=== PATIENT | female | born 1940 | race Caucasian/White ===

== ENCOUNTER 2016-10-30 19:24 | Emergency (ER) | payer MEDICARE, OTHER ==
--- NOTE | ~2016-10-30 | CR72 ---
[facility] A Service of [facility] & [facility] RADIOLOGY TEXT RESULTS PATIENT: LEXI BASS LOCATION: [facility] : 44 UNIT #: [id number] AGE: [address]: Shine Adams MD SEX: F ORDER DR: [id number] [facility] [address] [place], [place] [address] [id number] MR#: [id number] Acc #: [id number] NAME: LEXI BASS. : 1940 SEX: F STUDY DATE/TIME: 10/30/2016 19:41 UNIT: [facility] ROOM: STUDY DESCRIPTION: CR Chest Single View Portable Attending Physician: Ruben Adams M.D. Ordering Physician: Ed Doctor [id number] [facility] Primary Care Physician: Samuel Kincaid MEDICAL IMAGING REPORT This report is preliminary unless electronic signature is present EXAM Portable chest HISTORY Cough, hemoptysis, shortness of air with activity since 10/30/2016. COMPARISON STUDIES 06/30/15. FINDINGS AP portable view of the chest demonstrates patchy hyperlucency with coarse parenchymal lung markings suggesting underlying emphysema and fibrosis. This could represent a component of diffuse lung disease and possible idiopathic pulmonary fibrosis or other chronic lung disease. No acute airspace disease or consolidation. No effusions. Mild cardiomegaly. Patient is post median sternotomy and apparent CABG. Mild aortic atherosclerotic changes. No pneumothorax. Dictated by... Adenike Rice M.D. THIS IS AN ELECTRONICALLY VERIFIED REPORT Adenike Rice M.D. at 10/31/2016 10:10 AM Tiffanie TD: 10/31/2016 00:50 JOB #: [id number] MEDICAL IMAGING REPORT Page 1 of 1 COPY
[~2016-10-30 19:24] MED LIST: ABILIFY20 MG PO; APRESOLINE10 M1 DOB; ARICEPT5 M1 PO; ASPIRIN81 M2 PO; CELEXA20 MG PO; HYDRALAZINE HCL25 MG PO; ISORDIL PO; K-DUR20 ME1 DOB; LANTUS100 UNITS/ SUBQ; METOPROLOL TAR25 MG PO; MULTI VITAMIN1 EACH PO; SIMVASTATIN20 MG PO; TRICOR PO; VITAMIN C500 M1 PO
[2016-10-30 20:30] LABS: BASOPHIL% 0.4 % (0-2.5); EOSINOPHIL# 0.1 X10e3 (0-0.7); EOSINOPHIL% 1.4 % (0.0-7.0); LYMPHOCYTE# 2.8 X10e3 (1.0-3.5); LYMPHOCYTE% 29.4 % (17.0-45.0); MEAN CELL VOLUME 87.8 FL (83-96); MEAN CORPUSCULAR HEMOGLOBIN 28.4 PG (28-34); MEAN CORPUSCULAR HGB CONC 32.3 g/dL (30-36); MEAN PLATELET VOLUME 8.9 FL (6.5-11.5); MONOCYTE# 0.8 X10e3 (0-1.0); MONOCYTE% 8.2 % (3.0-12.0); NEUTROPHIL# 5.7 X10e3 (1.5-7.1); NEUTROPHIL% 60.6 % (40-75); PLATELET COUNT 234 X10e3 (140-420); RED BLOOD COUNT 3.87 X10e (3.90-5.30); RED CELL DISTRIBUTION WIDTH 14.1 % (11.0-15.5); WHITE BLOOD COUNT 9.5 X10e3 (4.0-10.5)
[2016-10-30 20:37] LABS: DIFF IND NO
[2016-10-30 20:53] LABS: INR 1.1; PARTIAL THROMBOPLASTIN TIME 25.8 SECONDS (23.5-31.3); PROTHROMBIN TIME (PATIENT) 11.5 SECONDS (10.0-11.7)
[2016-10-30 20:56] LABS: ALBUMIN SERUM 3.3 g/dL (3.5-5.0); BILIRUBIN, DIRECT 0.1 mg/dL (0.0-0.2); BILIRUBIN,INDIRECT 0.3 mg/dL (0.0-0.9); BILIRUBIN,TOTAL 0.4 mg/dL (0.2-2.0); BUN/CREATININE RATIO 33.75; CALCIUM SERUM 8.8 mg/dL (8.4-10.2); CREATININE SERUM 0.8 mg/dL (0.6-1.4); GLOM FILT RATE Estimated 72.7 mL/min (>60); POTASSIUM 4.2 mmol/L (3.5-5.1); PROTEIN TOTAL SERUM 6.1 g/dL (6.0-8.3)
== END 2016-10-30 23:35 | disposition home or self-care (01) ==
LOC: CED 19:24
PROVIDERS: Emergency Medicine
DX: R04.2 Hemoptysis (principal); F03.90 Unspecified dementia, unspecified severity, without behavioral disturbance, psychotic disturbance, mood disturbance, and anxiety; F31.9 Bipolar disorder, unspecified; I25.10 Atherosclerotic heart disease of native coronary artery without angina pectoris; E11.9 Type 2 diabetes mellitus without complications; Z88.0 Allergy status to penicillin; Z79.82 Long term (current) use of aspirin; Z79.899 Other long term (current) drug therapy; Z79.4 Long term (current) use of insulin
CPT/HCPCS: 36415; 71010; 80048; 80076; 85025; 85610; 85730; 99285